=== PATIENT | male | born 1995 | race Hispanic/Latino ===

== ENCOUNTER 2023-09-21 21:33 | Inpatient (IN) | payer BC, OTHER ==
[~2023-09-21] VITALS: Ht 170.2 cm; Wt 98.2 kg
[2023-09-21 22:32] LABS: BASOPHILS # (AUTO) 0.06 K/uL (0.00-0.20); BASOPHILS % (AUTO) 0.8 % (0.0-5.0); EOSINOPHILS # (AUTO) 0.13 K/uL (0.00-0.70); EOSINOPHILS % (AUTO) 1.8 % (0.0-8.0); HEMATOCRIT 47.9 % (42-54); IMMATURE GRANULOCYTE ABSOLUTE 0.02 K/uL (0-1); LYMPHOCYTES # (AUTO) 2.1 K/uL (1.0-4.8); LYMPHOCYTES % (AUTO) 28.2 % (21.0-51.0); MEAN CORPUSCULAR HGB CONC 32.4 g/dL (32.0-36.0); MEAN CORPUSCULAR VOLUME 83.4 fL (79-99); MONOCYTES # (AUTO) 0.6 K/uL (0.1-1.0); MONOCYTES % (AUTO) 8.4 % (3.0-13.0); NEUTROPHILS # (AUTO) 4.4 K/uL (1.8-7.7); NEUTROPHILS % (AUTO) 60.5 % (40.0-77.0); PLATELET COUNT (AUTO) 205 K/uL (130-400); RED BLOOD CELL COUNT(AUTO) 5.74 MIL/uL (4.50-6.20); RED CELL DISTRIBUTION WIDTH 13.2 % (11.0-15.5); WHITE BLOOD COUNT (AUTO) 7.3 K/uL (4.8-10.8)
[2023-09-21 22:58] LABS: CREATININE 1.1 mg/dL (0.5-1.3); POTASSIUM 4.4 mmol/L (3.5-5.1)
[2023-09-21 23:20] LABS: APPEARANCE,URINE CLEAR (CLEAR); BILIRUBIN,URINE NEGATIVE (NEGATIVE); COLOR,URINE LIGHT-YELLOW (YELLOW); GLUCOSE, URINE (UA) NEGATIVE (NEGATIVE); KETONES,URINE NEGATIVE (NEGATIVE); LEUKOCYTE ESTERASE ,URINE 25 Leu/uL (NEGATIVE); NITRATE,URINE NEGATIVE (NEGATIVE); OCCULT BLOOD,URINE NEGATIVE (NEGATIVE); PH,URINE 5.5 (5.0-8.0); PROTEIN,URINE NEGATIVE (NEGATIVE); UROBILINOGEN,URINE 0.2 mg/dL (0.2-1.0)
[2023-09-21 23:23] LABS: BACTERIA,URINE FEW /HPF (None Seen); MUCUS,URINE RARE LPF (None Seen)
[2023-09-22] VITALS (9 sets, daily range): BP systolic 110–131; BP diastolic 58–77; PULSE 54–66; RESP 16–20; O2SAT 96–99
[2023-09-22] MEDS ORDERED: MAG/ALUM/SIMETH 30 ML UDCUP PO PRN (00:30)
[2023-09-22] MEDS ORDERED: POTASSIUM CHLORIDE 10% ELIXIR 20 MEQ/15 ML UDCUP PO PRN (00:30)
[2023-09-22] MEDS ORDERED: GUAIFENESIN-DM 200/20 MG 10 ML PO PRN (00:30)
[2023-09-22] MEDS ORDERED: MAGNESIUM 2GM PREMIX 50ML 50 ML IV PRN (00:30)
[2023-09-22] MEDS ORDERED: ACETAMINOPHEN 325 MG TAB PO PRN ×3 (00:30)
[2023-09-22] MEDS ORDERED: ZOLPIDEM TARTRATE 5 MG TAB PO PRN (00:30)
[2023-09-22] MEDS ORDERED: KCL 20 MEQ ERTAB PO PRN (00:30)
[2023-09-22] MEDS ORDERED: NITROGLYCERIN 0.4 MG SL TAB SL PRN (00:30)
[2023-09-22] MEDS ORDERED: ONDANSETRON 4MG INJ IV PRN (00:30)
[2023-09-22] MEDS ORDERED: HYDRALAZINE 20MG/ML VIAL IV PRN (00:30)
[2023-09-22] MEDS ORDERED: LACTULOSE 20 GM/30 ML UDCUP PO PRN (00:30)
[2023-09-22] MEDS ORDERED: FAMOTIDINE 20MG VIAL IV PRN (00:30)
[2023-09-22] MEDS ORDERED: POTASSIUM CHLORIDE 10MEQ/100ML 100 ML IV PRN (00:30)
[2023-09-22] MEDS: KETOROLAC 30MG VIAL (30MG/ML) IVP ONE (00:42)
[2023-09-22] MEDS: ONDANSETRON 4MG INJ IVP ONE (00:42)
[2023-09-22] MEDS: MORPHINE 2 MG SYG IVP ONE (00:42)
[2023-09-22] MEDS: CEFTRIAXONE 1G VIAL IVPB ONE (00:43)
[2023-09-22] MEDS: 0.9%NACL 1000ML 1,000 ML IV SCH (00:54)
[2023-09-22] MEDS: DiphenhydrAMINE HCL 50 MG/ML VIAL IV PRN (01:04)
[2023-09-22] MEDS: MORPHINE 2 MG SYG IV ONE (01:07)
[2023-09-22 01:12] LABS: BASOPHILS # (AUTO) 0.03 K/uL (0.00-0.20); BASOPHILS % (AUTO) 0.4 % (0.0-5.0); EOSINOPHILS # (AUTO) 0.14 K/uL (0.00-0.70); EOSINOPHILS % (AUTO) 1.9 % (0.0-8.0); IMMATURE GRANULOCYTE ABSOLUTE 0.02 K/uL (0-1); LYMPHOCYTES # (AUTO) 2.4 K/uL (1.0-4.8); LYMPHOCYTES % (AUTO) 32.1 % (21.0-51.0); MEAN CORPUSCULAR HEMOGLOBIN 27.5 pg (27.0-33.0); MEAN CORPUSCULAR HGB CONC 33.8 g/dL (32.0-36.0); MEAN CORPUSCULAR VOLUME 81.4 fL (79-99); MONOCYTES # (AUTO) 0.7 K/uL (0.1-1.0); NEUTROPHILS # (AUTO) 4.1 K/uL (1.8-7.7); NEUTROPHILS % (AUTO) 55.3 % (40.0-77.0); PLATELET COUNT (AUTO) 202 K/uL (130-400); RED BLOOD CELL COUNT(AUTO) 5.53 MIL/uL (4.50-6.20); RED CELL DISTRIBUTION WIDTH 13.2 % (11.0-15.5); WHITE BLOOD COUNT (AUTO) 7.3 K/uL (4.8-10.8)
[2023-09-22 01:25] LABS: INR 0.98 (0.85-1.15); PROTHROMBIN TIME 11.6 SEC (9.6-11.6)
[2023-09-22 01:26] LABS: PARTIAL THROMBOPLASTIN TIME 29.1 SEC (26.3-35.5)
[2023-09-22 01:34] LABS: MAGNESIUM 2.2 mg/dL (1.80-2.40)
[2023-09-22 01:44] LABS: HEMOGLOBIN A1C 5.6 % (4.0-6.0)
[2023-09-22] MEDS: MORPHINE 2 MG SYG IVP PRN ×2 (04:05→14:56)
[2023-09-22] MEDS ORDERED: ZOSYN 3.375GM+NS 50ML 50 ML IV SCH (05:00)
[2023-09-22] MEDS: INSULIN HUMULIN R 100 UNIT/ML 3ML SQ SCH (06:21)
[2023-09-22] MEDS: MEROPENEM 1 GM in 0.9%NACL 100ML 100 ML IV SCH (06:43)
[2023-09-22] MEDS: FAMOTIDINE 20MG VIAL IV SCH (08:34)
[2023-09-22] MEDS: KETOROLAC 15MG/ML VIAL (15MG/ML) IV PRN (10:25)
[2023-09-22] MEDS ORDERED: POTASSIUM CHLORIDE 10MEQ SR TAB PO PRN (18:00)
[2023-09-22] MEDS: TRAMADOL HCL 50 MG TABLET PO SCH (20:25)
[2023-09-23] VITALS (7 sets, daily range): BP systolic 111–137; BP diastolic 67–79; PULSE 53–69; RESP 16–20; O2SAT 97–99
[2023-09-23 05:25] LABS: HEMOGLOBIN A1C 5.6 % (4.0-6.0)
[2023-09-23 05:27] LABS: PROTHROMBIN TIME 11.8 SEC (9.6-11.6)
[2023-09-23 05:40] LABS: ALANINE AMINOTRANSFERASE 21 U/L (12-78); ASPARTATE AMINOTRANSFERASE 13 U/L (10-37); BILIRUBIN,TOTAL 0.3 mg/dL (0.2-1.0); CARBON DIOXIDE 28 mmol/L (21-32); CHLORIDE 107 mmol/L (101-111); GLOMERULAR FILTR. RATE CALC 106 mL/min (>90); GLUCOSE,RANDOM 111 mg/dL (70-105); POTASSIUM 4.5 mmol/L (3.5-5.1); SODIUM SERUM 139 mmol/L (136-145); TOTAL PROTEIN, SERUM 5.6 g/dL (6.0-8.3); UREA NITROGEN, BLOOD 11 mg/dL (7-18)
[2023-09-23 06:10] LABS: BILIRUBIN,DIRECT < 0.1 mg/dL (0.0-0.3)
[2023-09-23] MEDS ORDERED: COMPOUND IV MISC 1 EACH IVSOLN MISC PRN (12:00)
[2023-09-23] MEDS: MAGNESIUM CITRATE 296 ML SOLUTION PO ONE (16:18)
[2023-09-24] VITALS (28 sets, daily range): BP systolic 102–143; BP diastolic 50–91; PULSE 55–113; RESP 11–20; O2SAT 97
[2023-09-24] MEDS ORDERED: PROPOFOL 10 MG/ML 20ML VIAL IV ONE (11:43)
[2023-09-24] MEDS ORDERED: ONDANSETRON 4MG INJ ONE (11:43)
[2023-09-24] MEDS ORDERED: KETOROLAC 30MG VIAL (30MG/ML) ONE ×2 (11:43→14:01)
[2023-09-24] MEDS ORDERED: MIDAZOLAM HCL 1 MG/ML 2ML VIAL ONE (11:43)
[2023-09-24] MEDS ORDERED: FENTANYL CITRATE PF 50 MCG/1 ML 2ML VIAL ONE ×2 (11:43→13:35)
[2023-09-24] MEDS ORDERED: DEXAMETHASONE SOD PHOSPHATE 10MG/ML 1ML VIAL ONE (11:43)
[2023-09-24] MEDS ORDERED: LIDOCAINE HCL MPF 1% 5ML VIAL ONE (11:43)
[2023-09-24] MEDS: LACTATED RINGERS 1000ML 1,000 ML IV ONE (12:11)
[2023-09-24] MEDS: MEROPENEM 1 GM VIAL ONE (12:15)
[2023-09-24] MEDS ORDERED: PHENYLEPHRINE HCL 10 MG/ML 1ML VIAL IV ONE (13:22)
[2023-09-24] MEDS ORDERED: EPHEDRINE SULFATE 50 MG/ML AMPULE ONE (13:33)
[2023-09-25 04:00] VITALS: BP 118/65; PULSE 91; RESP 19
[2023-09-25 08:00] VITALS: BP 145/87; PULSE 85; RESP 16
[2023-09-25] MEDS ORDERED: TAMS-1 PO (10:29)
[2023-09-25] MEDS ORDERED: TRAM50TA4 PO (10:29)
== END 2023-09-25 10:55 | disposition home or self-care (01) | DRG 694 ==
LOC: EDH 21:33 → EDHIP 21:34 → 3DH 09-22 00:55
PROVIDERS: ADMIT Hospitalist; ATTEND Hospitalist
PROC: 0TC38ZZ Extirpation of Matter from Right Kidney Pelvis, Via Natural or Artificial Opening Endoscopic (ICD-10-PCS; principal; 2023-09-24 13:00)
DX: N13.2 Hydronephrosis with renal and ureteral calculous obstruction (principal); L27.0 Generalized skin eruption due to drugs and medicaments taken internally; T36.1X5A Adverse effect of cephalosporins and other beta-lactam antibiotics, initial encounter; Z93.6 Other artificial openings of urinary tract status; Y92.89 Other specified places as the place of occurrence of the external cause; Z87.442 Personal history of urinary calculi; Z88.8 Allergy status to other drugs, medicaments and biological substances
CPT/HCPCS: 36415; 71045; 74018; 74176; 80048; 80076; 81001; 82550; 83036; 83605; 83735; 83880; 84145; 85025; 85378; 85610; 85730; 87088; 96375; G0378; J0696; J1100; J1200; J1885; J2185; J2250; J2270; J2371; J2405; J2704; J3010; J3490; J7120; A4216; A4222; A4223; A4600